=== PATIENT | female | born 1940 | race Caucasian/White ===

== ENCOUNTER 2021-07-10 11:19 | Emergency (ER) | payer MEDICARE, OTHER, SELFPAY ==
[2021-07-10 12:30] VITALS: BP 146/75; PULSE 72; RESP 19; TEMP 36.8; O2SAT 97; BMI 33.4
--- NOTE | 2021-07-10 12:59 | HMH.EDUTC ---
[facility] [place] Impression: Abrasion Disposition: Home, Self-Care Condition on Discharge: Good Instructions: DI for Laceration Repair-Skin Closure Strips Additional Instructions: Small amount of pressure with dressing may help to slow and stop bleeding Follow up with Family Doctor if no improvement or starts to bleed again Return if needed Straight to ER if any life threatening symptoms Referrals: Provider,Referral, MD [Primary Care Provider] - As needed Time of Disposition: 13:38 Medical Decision Making - Tony Inquiry Pt receiving controlled substance: No Tony was queried for this patient: No Vital Signs: 07/10/21 12:30 07/10/21 13:37 Temperature 98.2 F 98.2 F Temperature Source Oral Pulse Rate 72 Pulse Rate [Right Brachial] 72 Respiratory Rate 19 19 Blood Pressure 146/75 H Blood Pressure [Right Arm] 146/75 H Blood Pressure Mean [Right Arm] 98 Blood Pressure Source [Right Arm] Automatic Cuff Blood Pressure Position [Right Arm] Sitting 02 Sat by Pulse Oximetry 97 Oxygen Delivery Method Room Air Medical Decision Narrative: Small pressure dressing applied to area and bleeding stopped Applied steri strip to area and no active bleeding at this time appears like small scrap near small superficial spider vein will monitor to make sure that bleeding dose not start back No active bleeding patient dc'd [place] [facility] [place] - General Stated complaint: inj rt leg Time Seen by Provider: 07/10/21 12:59 Mode of Arrival: Ambulatory Source of Information: Patient, Relative Limitations: No Limitations Description of Symptoms (Recalled from Triage Doc. by RN): PATIENT REPORTS THAT A DOG JUMPED ON HER RIGHT LEG 2 DAYS AGO AND WOUND WILL NOT STOP BLEEDING. PATIENT IS ON PLAVIX AND ASPIRIN HEENT Symptoms (Recalled from RN notes): No Resp Symptoms (Recalled from RN notes): No Skin Symptoms (Recalled from RN notes): Yes MS Symptoms (Recalled from RN notes): No Functional Status (Recalled from RN notes): WNL - History of Present Illness Provider Complaint: Patient states that a dog jumped up on her leg about two days ago and caused a small puncture wound to her right lower leg States that she has been having bleeding from area ever since States they applied a bandage but can not get the bleeding to stop - Related Data Allergies Allergy/AdvReac Type Severity Reaction Status Date / Time No Known Allergies Allergy Verified 07/10/21 12:55 - Worker's Comp Is this a Worker's Comp case?: No [facility] History - Hepatitis A Screen Drug use history?: No High risk sexual behaviors?: No History of sexually transmitted infection?: No Currently employed?: No Childcare worker?: No Do you have indoor plumbing?: Yes Do you have electricity?: Yes Attestation statement:: This patient has been screened for Hepatitis A risk factors. I have reviewed the patient's past medical history: Yes - Social History Alcohol Intake: never Occupational Status: other ROS Obtained: Yes All systems reviewed & no additional complaints, Yes Systems reviewed as appropriate & no additional complaints - Constitutional Constitutional: Reports system reviewed and no additional complaints, except as docu, Denies body ache, Denies chills, Denies fever(s) - Cardiovascular Cardiovascular: Reports system reviewed and no additional complaints, except as docu - Respiratory Respiratory: Reports system reviewed and no additional complaints, except as docu - Gastrointestinal Gastrointestingal: Reports: system reviewed and no additional complaints, except as docu - Musculoskeletal Musculoskeletal: Reports system reviewed and no additional complaints, except as docu - Integumentary/Breasts Comments: small puncture wound to right lower leg Physical Exam - General General appearance: alert, in no apparent distress - Respiratory Respiratory exam: Present: normal lung sounds bilaterally. Absent: respiratory distress - Car
[2021-07-10 13:37] VITALS: BP 146/75; PULSE 72; RESP 19; TEMP 36.8; O2SAT 97
== END 2021-07-10 13:43 | disposition home or self-care (01) ==
PROVIDERS: Emergency Provider Nurse Practitioner
DX: S81.831A Puncture wound without foreign body, right lower leg, initial encounter (principal); W54.1XXA Struck by dog, initial encounter; Y92.019 Unspecified place in single-family (private) house as the place of occurrence of the external cause; I10 Essential (primary) hypertension; E78.5 Hyperlipidemia, unspecified; I25.2 Old myocardial infarction
CPT/HCPCS: G0463; 99202